=== PATIENT | female | born 1955 | race Caucasian/White ===

== ENCOUNTER → 2018-05-03 | Outpatient (CLI) | payer BC ==
[~2018-05-03] VITALS: Ht 170.2 cm; Wt 90.7 kg
[~2018-05-03] MED LIST: ALPRAZOLAM0.5 MG PO; BENEFIBER152 GM PO; CELEXA40 MG PO; DAILY MULTIPLE1 EACH PO; FISH OIL 1,0001 EAC7 PO; GLIPIZIDE ER2.5 MG PO; GLUCOPHAGE500 MG PO; LISINOPRIL10 MG PO; STOOL SOFTENER100 MG PO; TUMS500 MG PO
== END | disposition home or self-care (01) ==
LOC: AMB 07:48
PROVIDERS: Internal Medicine
DX: Z12.11 Encounter for screening for malignant neoplasm of colon (principal); D12.2 Benign neoplasm of ascending colon; K63.5 Polyp of colon; K57.90 Diverticulosis of intestine, part unspecified, without perforation or abscess without bleeding; Z86.010 Personal history of colon polyps; K64.8 Other hemorrhoids; E11.9 Type 2 diabetes mellitus without complications; Z87.891 Personal history of nicotine dependence; Z79.84 Long term (current) use of oral hypoglycemic drugs
CPT/HCPCS: 82948; 88305